=== PATIENT | female | born 1940 | race Caucasian/White ===

== ENCOUNTER 2022-04-19 12:43 | Emergency (ER) | payer OTHER, MEDICARE, BC, SELFPAY ==
[2022-04-19] VITALS (8 sets, daily range): BP systolic 108–130; BP diastolic 55–83; PULSE 58–71; RESP 12–23; TEMP 36.5–36.6; O2SAT 98–100
--- NOTE | ~2022-04-19 | CT_ITS ---
EXAMINATION: CT brain wo con DATE: 04/19/2022 12:55 INDICATION: CVA. TECHNIQUE: Computed tomography (CT) of the head was performed without intravenous contrast. The dose- length product was 605.33 mGy-cm. Automated exposure control and iterative reconstruction technique w ere employed. COMPARISON: None FINDINGS: There is an isodense extra-axial soft tissue collection left frontal parietal region with h igh density fluid extending into the sylvian fissure, suspicious for acute subarachnoid hemorrhage urban perimposed on chronic subdural hematoma. There is also high density material medial to the isodense e xtra-axial collection. There is midline shift to the right measuring 2 mm. There are scattered modera te-severity there is a left qktnnio-hijvyuhd-rmoekdkb craniotomy defect. periventricular and subcorti mat white matter changes, most likely related to small vessel ischemic disease (microangiopathy). Bas ilar cisterns are patent. There is an old left temporal lobe infarction with encephalomalacia. IMPRESSION: 1. Crescentic isodense soft tissue in the extra-axial location of the left frontal-parietal location with medial hyperdense margin. Hyperdense material extends into the left sylvian fissure. This may re present acute superimposed on chronic subdural hematoma with possible subarachnoid hemorrhage. No génesis or examinations are available for comparison. There is midline shift to the right measuring 2 mm. Ove rlying craniotomy defect noted. 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 Dr. Te Costello discussed with Dr. Ralph Nieves at 04/19/2022 13:03 GRANT WRITER. Reviewed, dictated and finalized at location A. T WRITER IMPRESSION: 1. Crescentic isodense soft tissue in the extra-axial location of the left fron miguel ángel-parietal location with medial hyperdense margin. Hyperdense material extend s into the left sylvian fissure. This may represent acute superimposed on chron ic subdural hematoma with possible subarachnoid hemorrhage. No prior examinatio ns are available for comparison. There is midline shift to the right measuring 2 mm. Overlying craniotomy defect noted. 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 Dr. Te Costello discussed with Dr. Ralph Nieves at 04/19/2022 13:03 GRANT WRITER.
--- NOTE | ~2022-04-19 | XR_ITS ---
XR chest 1V portable 04/19/2022 13:09 Indication: CVA. Procedure: AP portable chest Comparison: No prior studies for comparison. Findings: Heart size normal. There is a coronary artery stent. No focal air space disease, pulmonary edema, pleural effusion or suspected pneumothorax. Lung apices excluded. Impression: 1: No acute cardiopulmonary disease. Reviewed, dictated and finalized at location A. AL LABORATORY HELPER Impression: 1: No acute cardiopulmonary disease.
--- NOTE | 2022-04-19 12:47 | ECG_ITS ---
Measurements Intervals [place] Rate: 69 P: 55 WV: 156 QRS: 20 QRSD: 102 T: 179 QT: 448 QTc: 481 Interpretive Statements SINUS RHYTHM WITH OCCASIONAL SUPRAVENTRICULAR PREMATURE COMPLEXES WANDERING BASELINE ARTIFACT ST DEVIATION AND MODERATE T-WAVE ABNORMALITY, CONSIDER ANTEROLATERAL ISCHEMIA ST DEVIATION AND MODERATE T-WAVE ABNORMALITY, CONSIDER INFERIOR ISCHEMIA ABNORMAL ECG NO PREVIOUS ECG AVAILABLE FOR COMPARISON Electronically Signed On 04-19-2022 13:39:10 ORDNANCE ENGINEERING TECHNICIAN by Aaron Parks M.D.
--- NOTE | 2022-04-19 13:08 | ED.NEUROSD ---
HPI - Neuro Symptoms/Deficit General Chief Complaint: Neuro Symptoms/Deficit Stated Complaint: acute onset AMS Time Seen by Provider: 04/19/22 12:59 Source: EMS and RN notes reviewed Mode of arrival: EMS Limitations: physical limitation and clinical condition History of Present Illness HPI Narrative: 82 years old white female came to the emergency room by ambulance because of less responsive, does not follow commands and gurgling and mumbling her words. Patient last seen at her normal baseline at 9 AM, she was placed on a chair, at 12 noon the nurse went to take her to dinner and patient was less responsive, not following verbal commands, unable to move or get out of the chair. Ambulance arrived 19 minutes later and the patient have the same symptoms. Patient baseline is awake, alert, expressive aphasia and able to follow commands. On arrival to the emergency room patient is aphasic and able to follow commands Related Data Allergies Allergy/AdvReac Type Severity Reaction Status Date / Time erythromycin base Allergy Unknown Verified 04/14/22 08:09 Penicillins Allergy Unknown Verified 04/14/22 08:09 Sulfa (Sulfonamide Allergy Unknown Verified 04/14/22 08:08 Antibiotics) sulfanilamide Allergy Unknown Verified 04/14/22 08:08 Review of Systems Review of Systems: ROS unobtainable: Yes unobtainable due to mental status PMFSH Family History Family History Other Unknown family medical history Social History Social History Smoking status: Former smoker Additional smoking assessment comments: Patient family states she quit in her 20s Substance use: never Gender identity (if verbalized by the patient): Female Exam Narrative: General appearance: Well-developed, well-nourished Skin: Normal color Head: Normocephalic, nontraumatic Eyes: Clear conjunctiva ENT: Oropharynx normal, ears normal, nose normal Neck: Supple, nontender Chest and respiratory: Airway patent, no respiratory distress, no accessory muscle use Heart: Regular rate/rhythm Abdomen: Soft, nontender, no organomegaly, quiet bowel sounds Vascular: Normal peripheral pulses, normal capillary refill. Musculoskeletal: Normal range of motion, nontender back Neurologic: Alert, a phasic, follow commands, cannot answer questions. Move upper and lower extremities without any restriction or delay. Course Course Emergency Course: On arrival to the ED patient is back to her baseline. Which could be secondary to urinary tract infection, TIA, was half sleep at that time when the nurse approached her to take her to dinner.. CT scan of the brain today showed improvement compared to the CT scan of the brain prior to discharge from [facility] 2 weeks ago. Currently patient is hemodynamically stable, does not look in pain or distress, no focal neurodeficit except her expressive aphasia which is chronic. Patient is allergic to penicillin, Levaquin IV given. Patient will be discharged on Levaquin. Consultations Consultation #1: Dr. Balderas Neurosurgeon at [facility], he is telling me that CT scan of the head today looks much better than the last CAT scan patient had in his facility prior to discharge 2 to 3 weeks ago. Also he confirmed that urinary tract infection is high likely the underlying cause of patient weakness. Patient can go back to rehab. No need for any neurologic examination at this time Date: 04/19/22 Time: 14:37 MDM - Neuro Symptoms/Deficit Lab Data 04/19/22 12:59 04/19/22 12:59 Labs: Lab Results 04/19/22 04/19/22 04/19/22 Range/Un
[2022-04-19 13:10] LABS: Basophils Absolute Auto 0.1 K/mm3 (0.0-0.1); Basophils Percent Auto 0.5 % (0.2-1.2); Eosinophils Absolute Auto 0.4 K/mm3 (0-0.3); Eosinophils Percent Auto 4.4 % (0-4.4); Hematocrit 36.4 % (37.0-47.0); Hemoglobin 11.6 g/dL (12.0-15.0); Immature Granulocyte Absolute 0.05 K/mm3 (0.00-0.031); Immature Granulocyte Percent A 0.5 % (0-0.5); Lymphocytes Absolute Auto 1.13 K/mm3 (0.9-3.2); Lymphocytes Percent Auto 12.3 % (18.3-44.2); Mean Corpuscular HGB Conc 31.9 g/dl (32-36); Monocytes Percent Auto 10.9 % (2.6-8.5); Neutrophils Absolute Auto 6.5 K/mm3 (1.3-6.7); Neutrophils Percent Auto 71.4 % (45.5-73.1); Platelet Count Result 374 k/mm3 (150-375); Red Cell Distribution Width 13.2 % (11.5-14.5); White Blood Count 9.2 K/mm3 (4.5-10.0)
[2022-04-19 13:19] LABS: Alanine Aminotransferase 35 U/L (6-35); Albumin Level 3.9 g/dL (3.5-5.1); Alkaline Phosphatase 104 U/L (38-126); Anion Gap 7 mmol/L (8-16); Aspartate Amino Transferase 39 U/L (14-36); Bilirubin,Total 0.5 mg/dL (0.2-1.3); Blood Urea Nitrogen 26 mg/dL (7-17); Calcium 8.5 mg/dL (8.4-10.2); Carbon Dioxide 28 mmol/L (22-30); Chloride 99 mmol/L (98-107); Estimated CRCL calculation 39 ml/min; Estimated Glomerular Filt Rate 60; Glucose 103 mg/dL (65-110); Potassium 4.6 mmol/L (3.4-5.0); Sodium 134 mmol/L (137-145)
[2022-04-19 13:20] LABS: Prothrombin Time 12.5 Seconds (11.1-14.7)
[2022-04-19 13:21] LABS: Appearance Urine Slightly Cloudy (Clear); Bilirubin Urine Negative (Negative); Blood Urine 1+ (Negative); Color Urine Yellow (Yellow); Glucose Urine UA Negative (Negative); Ketones Urine Negative (Negative); Leukocyte Esterase Ur 2+ LEU/UL (Negative); Nitrate Urine Negative (Negative); Protein Urine 1+ mg/dL (Negative); Specific Grav Ur 1.025 (1.001-1.035); Urobilinogen Urine 0.2 mg/dL (<2.0)
[2022-04-19 13:21] LABS: Partial Thromboplastin Time 29.6 SECONDS (22.3-36.8)
[2022-04-19 13:24] LABS: Add Urine Microscopic? YES; Bacteria Urine Trace /hpf; Mucus Urine Rare /lpf; Squamous Epithelial Cell Urine Rare /hpf (Few); WBC Clumps Urine Present /HPF; WBC Urine >75 /hpf
[2022-04-19 13:31] LABS: Troponin I < 0.012 ng/mL (0.000-0.034)
== END 2022-04-19 16:35 ==
PROVIDERS: Emergency Medicine; Emergency Provider Emergency Medicine; PCP Internal Medicine
DX: N39.0 Urinary tract infection, site not specified (principal); R53.1 Weakness; Z87.891 Personal history of nicotine dependence; I49.1 Atrial premature depolarization; R94.31 Abnormal electrocardiogram [ECG] [EKG]
CPT/HCPCS: 36415; 70450; 71045; 80053; 81001; 84484; 85025; 85610; 85730; 87077; 87086; 87186; 93005; 96365; 99284; J1956

== ENCOUNTER 2022-05-18 10:02 | Observation (INO) | payer MEDICARE, BC, SELFPAY ==
[2022-05-18] VITALS (26 sets, daily range): BP systolic 92–140; BP diastolic 49–95; PULSE 57–79; RESP 12–18; TEMP 36.4–36.7; O2SAT 97–100; BMI 24.5
--- NOTE | ~2022-05-18 | XR_ITS ---
EXAMINATION: XR chest 2V DATE: 05/18/2022 10:50 INDICATION: Chest pain. Cough. TECHNIQUE: Frontal and lateral views of the chest were obtained. COMPARISON: Chest single view 04/19/2022 FINDINGS: There is mild atelectasis at the lung bases. No pleural effusion or pneumothorax. The heart size is normal. Surgical clips in the right upper quadrant are likely from cholecystectomy. IMPRESSION: 1. Mild atelectasis at the lung bases. Reviewed, dictated and finalized at location A. ULTURE TEACHER
--- NOTE | 2022-05-18 10:07 | ECG_ITS ---
Measurements Intervals [place] Rate: 72 P: 33 IL: 190 QRS: -43 QRSD: 92 T: 64 QT: 378 QTc: 415 Interpretive Statements SINUS RHYTHM WITH SINUS ARRHYTHMIA LOW QRS VOLTAGE IN PRECORDIAL LEADS BORDERLINE R WAVE PROGRESSION, ANTERIOR LEADS INFERIOR INFARCT, AGE INDETERMINATE BORDERLINE ST-T WAVE ABNORMALITY- HIGH LATERAL LEADS BASELINE ARTIFACT- I, II, AVR ABNORMAL ECG COMPARED TO ECG 04/19/2022 13:06:27 SINUS ARRHYTHMIA NOW PRESENT MYOCARDIAL INFARCT FINDING NOW PRESENT Electronically Signed On 05-18-2022 11:24:11 BEHAVIORAL SERVICES TECH by Dragan Walden D.O.
[2022-05-18 11:17] LABS: Basophils Percent Auto 0.6 % (0.2-1.2); Eosinophils Absolute Auto 0.2 K/mm3 (0-0.3); Eosinophils Percent Auto 3.4 % (0-4.4); Hematocrit 39.3 % (37.0-47.0); Hemoglobin 12.5 g/dL (12.0-15.0); Immature Granulocyte Absolute 0.02 K/mm3 (0.00-0.031); Immature Granulocyte Percent A 0.4 % (0-0.5); Lymphocytes Absolute Auto 0.97 K/mm3 (0.9-3.2); Lymphocytes Percent Auto 20.7 % (18.3-44.2); Mean Corpuscular HGB Conc 31.8 g/dl (32-36); Mean Corpuscular Hemoglobin 28.2 pg (26-34); Mean Corpuscular Volume 88.7 fl (80-100); Mean Platelet Volume 9.2 fl (7.4-10.4); Monocytes Absolute Auto 0.5 K/mm3 (0.1-0.6); Monocytes Percent Auto 9.8 % (2.6-8.5); Neutrophils Percent Auto 65.1 % (45.5-73.1); Platelet Count Result 210 k/mm3 (150-375); Red Blood Count 4.43 M/mm3 (4.2-5.4); Red Cell Distribution Width 13.2 % (11.5-14.5); White Blood Count 4.7 K/mm3 (4.5-10.0)
[2022-05-18 11:27] LABS: Alanine Aminotransferase 20 U/L (6-35); Albumin Level 3.9 g/dL (3.5-5.1); Alkaline Phosphatase 88 U/L (38-126); Anion Gap 6 mmol/L (8-16); Aspartate Amino Transferase 31 U/L (14-36); Blood Urea Nitrogen 12 mg/dL (7-17); Calcium 8.4 mg/dL (8.4-10.2); Carbon Dioxide 28 mmol/L (22-30); Chloride 104 mmol/L (98-107); Estimated Glomerular Filt Rate 53; Glucose 93 mg/dL (65-110); Lipase 276 U/L (23-300); Sodium 138 mmol/L (137-145)
[2022-05-18 11:36] LABS: Prothrombin Time 12.9 Seconds (11.1-14.7)
[2022-05-18 11:37] LABS: Partial Thromboplastin Time 28.7 SECONDS (22.3-36.8)
[2022-05-18 11:39] LABS: Troponin I < 0.012 ng/mL (0.000-0.034)
--- NOTE | 2022-05-18 11:47 | ED.CHESTPAIN ---
HPI - Chest Pain General Chief Complaint: Chest Pain <CHAO Del Cid Last Filed: 05/18/22 13:27> Stated Complaint: Chest pain since 9 am <CHAO Del Cid Last Filed: 05/18/22 13:27> Time Seen by Provider: 05/18/22 10:42 <CHAO Del Cid Last Filed: 05/18/22 13:27> Source: patient, family, EMS and RN notes reviewed <CHAO Del Cid Last Filed: 05/18/22 13:27> Mode of arrival: EMS <CHAO Del Cid Last Filed: 05/18/22 13:27> Limitations: other (patient with history of CVA with residual aphasia) <CHAO Del Cid Last Filed: 05/18/22 13:27> History of Present Illness HPI narrative: This is a 82-year-old female that presents to the emergency department with chief complaint of chest pain. Reportedly was complaining of chest pain at her nursing facility. Patient with history of recent CVA with residual aphasia. It is hard to obtain any meaningful history from her. She reports currently she does not have any chest pain or other complaints. Was given nitroglycerin and aspirin in route via EMS. She does have known history of coronary artery disease. Her tariff compiling clerk is Dr. Roberts. Denies fever, cough, difficulty breathing, abdominal pain, vomiting. <CHAO Del Cid Last Filed: 05/18/22 13:27> Related Data Allergies/Adverse Reactions: Allergies Allergy/AdvReac Type Severity Reaction Status Date / Time erythromycin base Allergy Unknown Verified 04/14/22 08:09 Penicillins Allergy Unknown Verified 04/14/22 08:09 Sulfa (Sulfonamide Allergy Unknown Verified 04/14/22 08:08 Antibiotics) sulfanilamide Allergy Unknown Verified 04/14/22 08:08 <CHAO Del Cid Last Filed: 05/18/22 13:27> Review of Systems Review of Systems: ROS unobtainable: Yes unobtainable due to medical condition <CHAO Del Cid Last Filed: 05/18/22 13:27> PMFSH Past Medical History Medical History: Medical History (Updated 05/18/22 @ 13:18 by Kelly Bran PA-C) Atrial fibrillation CVA (cerebral vascular accident) Essential (primary) hypertension GERD (gastroesophageal reflux disease) History of coronary artery disease <Kelly Bran PA-C - Last Filed: 05/18/22 13:27> Family History Family History: Family History Other Unknown family medical history <Kelly Bran PA-C - Last Filed: 05/18/22 13:27> Social History Social History: Social History Smoking status: Former smoker Additional smoking assessment comments: Patient family states she quit in her 20s Substance use: never Gender identity (if verbalized by the patient): Female <Kelly Bran PA-C - Last Filed: 05/18/22 13:27> Exam Narrative: GENERAL: Elderly, well-nourished, and in no acute distress. HEAD: Normocephalic, atraumatic. EYES: EOMI. ENT: Nares clear, no rhinorrhea or epistaxis. Mucous membranes moist. Oropharynx without tonsillar hypertrophy exudate or other lesions. NECK: Supple. No adenopathy or masses. CHEST: Clear to auscultation. No respiratory distress. No wheezes rales or rhonchi HEART: Regular rate and rhythm. No murmur heard. Normal peripheral pulses. ABDOMEN: Soft, nontender, nondistended, normal active bowel sounds. EXTREMITIES: Normal range of motion. No edema. SKIN: Warm, dry, no rash. NEURO: No focal deficits. Alert and oriented x2. PSYCH: Normal mood and affect <Kelly Bran PA-C - Last Filed: 05/18/22 13:27> Course Course Emergency Course: Patient and family updated on work-up and need for admission <Kelly Bran PA-C - Last Filed: 05/18/22 13:27> UPHOLSTERER OUTSIDE/PA Physician Supervision For this patient encounter, I reviewed the UPHOLSTERER OUTSIDE or PA documentation, treatment plan, and medical decision making; and I had [id number] time with this patient. Patient and family were updated on the results of the
[2022-05-18 13:32] LABS: Troponin I < 0.012 ng/mL (0.000-0.034)
[2022-05-18 13:47] LABS: Influenza A QL RT-PCR Negative (Negative); Influenza B QL RT-PCR Negative (Negative); SARS-CoV-2 RNA PCR Positive
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
--- NOTE | 2022-05-18 15:30 | PM.CNCAR ---
Assessment and Plan Assessment and plan (1) Chest pain: Qualifiers: Chest pain type: unspecified Qualified Code(s): R07.9 - Chest pain, unspecified Code(s): R07.9 - Chest pain, unspecified Status: Acute Assessment and Plan: Reproducible by palpation of chest wall so could be musculoskeletal. Thus far EKG and troponin are unremarkable. Due to testing positive for covid would defer stress testing in next couple of weeks. Obtain echo. (2) CAD (coronary artery disease): Code(s): I25.10 - Atherosclerotic heart disease of [place] coronary artery without angina pectoris Status: Acute Assessment and Plan: Her regular toxicologist is Dr. Roberts. Start Aspirin 81 mg daily. (3) Hypertension: Code(s): I10 - Essential (primary) hypertension Status: Acute Assessment and Plan: Stable. (4) Dyslipidemia: Code(s): E78.5 - Hyperlipidemia, unspecified Status: Acute Assessment and Plan: On Atorvastatin. (5) COVID-19: Code(s): U07.1 - COVID-19 Status: Acute Assessment and Plan: Management as per hospitalist. History of Present Illness History of Present Illness Consult date/time: 05/18/22 15:30 Reason For Visit: Chest Pain Narrative: 82 yr old woman presented from longterm to ER via ambulance for chest pain. She has a history of CAD with stent, hypertension, dyslipidemia, stroke with residual expressive aphasia. Her regular toxicologist is Dr. Roberts. Unable to obtain appreciable history from patient due to aphasia. She is alert and pleasant. Apparently she had chest pain earlier today that resolved. She is able to walk at longterm without any problems. She tested positive for covid by PCR. Review of Systems Constitutional: Constitutional: Reports as per HPI, Denies chills and Denies fever(s) Cardiovascular: Cardiovascular: Reports as per HPI, Reports chest pain, Denies irregular heart rhythm, Denies leg edema and Denies lightheadedness Respiratory: Respiratory: Reports as per HPI and Denies dyspnea Gastrointestinal: Gastrointestinal: Reports as per HPI and Denies abdominal pain Genitourinary: Genitourinary: Reports as per HPI and Denies dysuria Musculoskeletal: Musculoskeletal: Reports as per HPI Neurologic: Reports as per HPI, Denies dizziness and Denies syncope [facility] Past Medical History Medical History (Updated 05/18/22 @ 15:35 by Dragan Walden DO) Atrial fibrillation CVA (cerebral vascular accident) Essential (primary) hypertension GERD (gastroesophageal reflux disease) History of coronary artery disease Family History Family History Other Unknown family medical history Social History Social History Smoking status: Former smoker Additional smoking assessment comments: Patient family states she quit in her 20s Substance use: never Gender identity (if verbalized by the patient): Female Meds Home Medications and Allergies Home Medications Medication Instructions Recorded Confirmed Type L.acidophilus-L.bulgar-B.bifid-S.thermoph 1 tab PO BID #60 tabs 04/25/22 Rx 1 billion cell-250 mg tablet (Mallika-Bid) atorvastatin 10 mg tablet 10 mg PO QHS #30 tabs 04/25/22 Rx bisacodyl 5 mg tablet,delayed 5 mg PO QAM PRN Constipation #30 04/25/22 Rx release (Laxative (bisacodyl)) tabs bumetanide 1 mg tablet 1 mg PO DAILY PRN FLUID RETENTION 04/25/22 Rx #30 tabs docusate sodium 100 mg capsule 100 mg PO Q12H PRN Constipation 04/25/22 Rx #60 caps famotidine 20 mg tablet 20 mg PO Q12HR #60 tabs 04/25/22 Rx ferrous sulfate 300 mg (60 mg 300 mg (5 mL) PO DAILY@2100 #30 mL 04/25/22 Rx iron)/5 mL oral liquid heparin (porcine) 5,000 unit/mL 5,000 units subcut Q12HR #30 mL 04/25/22 Rx injection solution levetiracetam 500 mg tablet 500 mg PO Q12HR #60 tabs 04/25/22 Rx (
[2022-05-18 16:43] LABS: Troponin I < 0.012 ng/mL (0.000-0.034)
--- NOTE | 2022-05-18 16:58 | PC.NURSE ---
heart healthy diet food tray ordered
--- NOTE | 2022-05-18 18:48 | ADMGEN ---
This patient, Bella Morrison, was admitted to IMU Room 231-01. 18:43 Patient/family oriented to hospital policies and general routines including ID bracelet, bed and alarms, visiting hours, pain management, procedures, bathroom and other care routines, personal items, smoking policy, room service/diet, and visiting hours. Room air, no distress noted. Information on how to activate the Rapid Response Team has been discussed. Patient/Family are encouraged to report perceived risks to care and to ask questions if they do not understand what they are told or what they should do.
[2022-05-19] VITALS (13 sets, daily range): BP systolic 114–148; BP diastolic 55–90; PULSE 50–82; RESP 16–20; TEMP 36.4–36.6; O2SAT 93–100
--- NOTE | 2022-05-19 | ECHO_ITS ---
Patient Info Name: Bella Morrison Age: 82 years : 1940 Gender: Female Ht: 65 in Wt: 143 lbs BSA: 1.73 m2 HR: 63 bpm BP: 148 / 69 mmHg Technical Quality: Fair Exam Date: 05/19/2022 11:01 AM Exam Location: [facility] Pulmonary Patient Status: Inpatient Admit Date: 05/18/2022 Staff Ordering Physician: Dragan Walden DO [employer]: Demetris Givens RDCS, RT Attending Provider: Anton Leonard MD Referring Physician: Win SULLIVAN; Exam Type: CA echo doppler color flow Study Info Indications R07.9 - Chest pain, unspecified Complete two-dimensional, color flow and Doppler transthoracic echocardiogram is performed. Strain analysis performed. Summary 1. Complete two-dimensional, color flow and Doppler transthoracic echocardiogram is performed. 2. Left ventricular chamber dimension is normal. 3. Left ventricular systolic function is normal, estimated at 60-65%. 4. Left ventricular septal wall motion is abnormal with septal motion related to bundle branch block. 5. The left ventricular diastolic function is grade I diastolic dysfunction. 6. E/e' 6 is not elevated. 7. Global longitudinal strain is normal at -18.2%. 8. Right ventricular systolic function is reduced based on an abnormal TAPSE 1.6 cm. 9. There is mild aortic valve sclerosis. 10. There is trace aortic valve regurgitation. 11. There is trace mitral valve regurgitation. 12. There is trace tricuspid valve regurgitation. 13. No pulmonary hypertension, estimated pulmonary arterial systolic pressure is 26 mmHg. Left Ventricle E/e' 6 is not elevated. Global longitudinal strain is normal at -18.2%. Left ventricular chamber dimension is normal. Left ventricular systolic function is normal, estimated at 60-65%. Left ventricular septal wall motion is abnormal with septal motion related to bundle branch block. The left ventricular diastolic function is grade I diastolic dysfunction. Right Ventricle Right ventricular systolic function is reduced based on an abnormal TAPSE 1.6 cm. Right ventricular chamber dimension is not well visualized. Left Atria Left atrial chamber dimension is normal. Right Atria Right atrial chamber dimension is normal. Aortic Valve The aortic valve is probable trileaflet. There is mild aortic valve sclerosis. There is no aortic valve stenosis. There is trace aortic valve regurgitation. Pulmonic Valve There is no pulmonic regurgitation. Mitral Valve There is no mitral valve stenosis. There is trace mitral valve regurgitation. Tricuspid Valve There is trace tricuspid valve regurgitation. No pulmonary hypertension, estimated pulmonary arterial systolic pressure is 26 mmHg. Pericardium/Pleural There is no pericardial effusion. Inferior Vena Cava Normal inferior vena cava with >50% collapse upon inspiration consistent with normal right atrial pressure, 5 mmHg. Aorta The aortic root size at the sinus of Valsalva is normal. Left Ventricular Outflow Tract Name Value Normal LVOT 2D LVOT Diameter 2.0 cm LVOT Doppler LVOT Peak Gradient 4 mmHg LVOT Mean Gradient
[2022-05-19 07:16] LABS: Anion Gap 8 mmol/L (8-16); Blood Urea Nitrogen 14 mg/dL (7-17); Carbon Dioxide 25 mmol/L (22-30); Chloride 106 mmol/L (98-107); Estimated CRCL calculation 39 ml/min; Estimated Glomerular Filt Rate 60; Glucose 95 mg/dL (65-110); Sodium 139 mmol/L (137-145)
--- NOTE | 2022-05-19 07:58 | PM.PNCARD ---
Progress Note: A&P Assessment and Plan (1) Chest pain: Qualifiers: Chest pain type: unspecified Qualified Code(s): R07.9 - Chest pain, unspecified Code(s): R07.9 - Chest pain, unspecified Status: Acute Assessment and Plan: Reproducible by palpation of chest wall so could be musculoskeletal. Thus far EKG and troponin are unremarkable. Due to testing positive for covid would defer stress testing in next couple of weeks. Obtain echo. If echo is unremarkable, no further cardiac workup is needed. (2) CAD (coronary artery disease): Code(s): I25.10 - Atherosclerotic heart disease of [place] coronary artery without angina pectoris Status: Acute Assessment and Plan: Her regular academic registrar is Dr. Roberts. Started Aspirin 81 mg daily. (3) Hypertension: Code(s): I10 - Essential (primary) hypertension Status: Acute Assessment and Plan: Stable. (4) Dyslipidemia: Code(s): E78.5 - Hyperlipidemia, unspecified Status: Acute Assessment and Plan: On Atorvastatin. (5) COVID-19: Code(s): U07.1 - COVID-19 Status: Acute Assessment and Plan: Management as per hospitalist. Subjective Date/time seen: 05/19/22 07:58 Interval history: No more chest pain. No sob. Exam Const: General: cooperative, healthy appearing and comfortable Orientation/consciousness: oriented to person, oriented to place and oriented to time Resp: Auscultation: clear to auscultation bilaterally, no crackles, no rales, no rhonchi and no wheezes Cardio: Rate: regular rate Rhythm: regular rhythm Heart sounds: no murmurs Peripheral pulses: dorsalis pedis present Neuro: General: oriented to person, oriented to place and oriented to time Extrem: Right lower extremity: no edema Left lower extremity: no edema Objective Data Vital Signs Vital Signs: Vital Signs - 24 hr 05/18/22 10:03 05/18/22 10:18 05/18/22 10:31 Temperature 98.1 F Pulse Rate 70 74 79 Respiratory Rate 18 12 12 Blood Pressure 100/61 100/61 94/58 L Pulse Oximetry 98 99 98 Oxygen Delivery Room Air 05/18/22 11:01 05/18/22 11:16 05/18/22 11:31 Temperature Pulse Rate 72 71 71 Respiratory Rate 15 14 13 Blood Pressure 108/58 L 98/57 L 107/59 L Pulse Oximetry 98 98 98 Oxygen Delivery 05/18/22 11:46 05/18/22 12:31 05/18/22 13:01 Temperature Pulse Rate 66 57 L 60 Respiratory Rate 13 12 13 Blood Pressure 107/57 L 118/95 H 132/60 Pulse Oximetry 98 Oxygen Delivery 05/18/22 13:31 05/18/22 13:46 05/18/22 14:01 Temperature Pulse Rate 62 64 69 Respiratory Rate 18 16 13 Blood Pressure 92/55 L 94/59 L 109/57 L Pulse Oximetry 99 97 Oxygen Delivery 05/18/22 14:16 05/18/22 14:30 05/18/22 14:31 Temperature Pulse Rate 68 70 73 Respiratory Rate 16 16 13 Blood Pressure 128/54 L 101/64 Pulse Oximetry Oxygen Delivery 05/18/22 15:08 05/18/22 15:15 05/18/22 15:16 Temperature Pulse Rate 61 65 64 Respiratory Rate 15 16 16 Blood Pressure 119/61 Pulse Oximetry 98 98 98 Oxygen Delivery 05/18/22 15:30 05/18/22 15:31 05/18/22 16:16 Temperature Pulse Rate 65 65 71 Respiratory Rate 16 14 14 Blood Pressure 138/57 L 102/51 L Pulse Oximetry 97 98 Oxygen Delivery 05/18/22 17:31 05/18/22 19:11 05/18/22 20:00 Temperature 97.7 F Pulse Rate 63 74 70 Respiratory Rate 13 18 Blood Pressure 140/50 L 127/49 L Pulse Oximetry 97 100 Oxygen Delivery 05/18/22 21:47 05/18/22 23:45 05/19/22 00:00 Temperature 97.6 F Pulse Rate 72 62 68 Respiratory Rate 18 Blood Pressure 129/52 L Pulse Oximetry 98 Oxygen Delivery 05/19/22 00:00 05/19/22 02:00 05/19/22 04:00 Temperature 97.6 F Pulse Rate 68 79 82 Respiratory Rate 18 20 Blood Pressure 148/69 H Pulse Oximetry 98 99 Oxygen Delivery Room Air 05/19/22 04:00 05/19/22 04:00 05/19/22 05:18 Temperature Pulse Rate 64 76 72 Respiratory Ra
[2022-05-19] MEDS: ASPIRIN 81 MG ENTERIC TABLET PO (08:30)
[2022-05-19] MEDS: levETIRAcetam 500 MG TABLET PO ×2 (08:30→16:23)
[2022-05-19] MEDS: FAMOTIDINE 20 MG TABLET PO ×2 (08:30→16:23)
[2022-05-19] MEDS: FERROUS SULFATE 324 MG TABLET PO (08:30)
[2022-05-19] MEDS: METOPROLOL TARTRATE 6.25 MG TABLET PO ×2 (08:30→20:34)
[2022-05-19] MEDS: SACCHAROMYCES BOULARDII 250 MG CAPSULE PO ×2 (08:31→16:23)
[2022-05-19] MEDS: ACETAMINOPHEN 325 MG TABLET 650 MG PO (08:43)
--- NOTE | 2022-05-19 16:29 | PM.IMPN ---
Progress Note: A&P Assessment and Plan (1) Chest pain: Qualifiers: Chest pain type: unspecified Qualified Code(s): R07.9 - Chest pain, unspecified Code(s): R07.9 - Chest pain, unspecified Status: Acute Assessment and Plan: Patient has apparently been complaining of chest pain off and on for quite some time. Localized reproducible chest pain suspected to be musculoskeletal in origin. EKG shows Q-waves in the inferior leaves and ST segment changes in the high lateral leads which are new compared to tracings done just 1 month ago. Cardiology has been consulted echocardiogram is pending (2) Lab test positive for detection of COVID-19 virus: Code(s): U07.1 - COVID-19 Status: Acute Assessment and Plan: Reportedly tested positive 2 weeks ago; has been out of quarantine for 5 days. No longer asymptomatic. No need for isolation. (3) Paroxysmal atrial fibrillation: Code(s): I48.0 - Paroxysmal atrial fibrillation Status: Acute Assessment and Plan: Currently in a sinus rhythm. Continue metoprolol 6.25 milligrams b.i.d.. Not on anticoagulation, likely due to recent intracranial hemorrhage. (4) Hypertension: Code(s): I10 - Essential (primary) hypertension Status: Acute Assessment and Plan: Blood pressures were reviewed and they have been stable aside from a few readings on the low end of normal. Antihypertensives will be reviewed and resumed as appropriate. (5) Dyslipidemia: Code(s): E78.5 - Hyperlipidemia, unspecified Status: Acute Assessment and Plan: Continue statin; LFTs within normal limits. Plan Will order PT OT Subjective Date/time seen: 05/19/22 16:29 Interval history: Feels okay no further chest pain. Denies any shortness of breath. History limited due to expressive aphasia. Review of Systems Review of Systems: All systems reviewed & are unremarkable except as noted in HPI and below Exam Narrative: General: Nontoxic-appearing female laying in bed in no acute distress expressive aphasia at baseline. HEENT: Prior left craniotomy with a few eschars. PERRL, EOMI. Sclera anicteric. Oral mucosa moist. Neck: Supple. No obvious bruits. Respiratory: Lungs are clear to auscultation bilaterally. Cardiovascular: Regular rate and rhythm with S1-S2. Chest wall is nontender Gastrointestinal: Abdomen is soft, nontender, and nondistended with positive bowel sounds. Skin: Warm and dry. No rash or lesions on limited exam. Extremities: No cyanosis, clubbing, or edema. Radial and pedal pulses intact. Neurological: Alert. Cranial nerves 2-12 are grossly intact. Speech is clear but with expressive aphasia. No facial asymmetry. Hand tip scourer and foot pushes equal bilaterally. Strength intact in upper and lower extremities. Psychiatric: Pleasant and cooperative. Frequent crying episodes. Objective Data Vital Signs Vital Signs: Vital Signs - 24 hr 05/18/22 17:31 05/18/22 19:11 05/18/22 20:00 Temperature 97.7 F Pulse Rate 63 74 70 Respiratory Rate 13 18 Blood Pressure 140/50 L 127/49 L Pulse Oximetry 97 100 Oxygen Delivery 05/18/22 21:47 05/18/22 23:45 05/19/22 00:00 Temperature 97.6 F Pulse Rate 72 62 68 Respiratory Rate 18 Blood Pressure 129/52 L Pulse Oximetry 98 Oxygen Delivery 05/19/22 00:00 05/19/22 02:00 05/19/22 04:00 Temperature 97.6 F Pulse Rate 68 79 82 Respiratory Rate 18 20 Blood Pressure 148/69 H Pulse Oximetry 98 99 Oxygen Delivery Room Air 05/19/22 04:00 05/19/22 04:00 05/19/22 05:18 Temperature Pulse Rate 64 76 72 Respiratory Rate 18 Blood Pressure Pulse Oximetry 98 Oxygen Delivery Room Air 05/19/22 08:00 05/19/22 08:00 05/19/22 10:00 Temperature 97.6 F Pulse Rate 77 82 64 Respiratory Rate 16 Blood Pressure 141/77 H Pulse Oximetry 93 Oxygen Delivery 05/19/22 12:00 05/19/22 14:00 Temperature Pul
[2022-05-19] MEDS: traZODone HCL 50 MG TABLET PO (20:34)
[2022-05-19] MEDS: ATORVASTATIN 10 MG TABLET PO (20:34)
--- NOTE | 2022-05-19 21:46 | PC.NURSE ---
This patient, Bella Morrison, was transferred to [[id number] ] on 05/19/22 at 2146. Personal belongings sent with patient. Report given to [Tiarra palm ]. Appropriate documentation sent with patient.
--- NOTE | 2022-05-19 21:54 | PC.NURSE ---
recieved from IMU per bed.
[2022-05-20] VITALS: PULSE 52
[2022-05-20 00:30] VITALS: PULSE 52
[2022-05-20 05:08] VITALS: BP 96/54; PULSE 59; RESP 16; TEMP 37.2; O2SAT 97
[2022-05-20 06:37] LABS: Basophils Percent Auto 0.5 % (0.2-1.2); Eosinophils Absolute Auto 0.2 K/mm3 (0-0.3); Eosinophils Percent Auto 4.3 % (0-4.4); Hematocrit 38.5 % (37.0-47.0); Hemoglobin 12.1 g/dL (12.0-15.0); Immature Granulocyte Absolute 0.02 K/mm3 (0.00-0.031); Immature Granulocyte Percent A 0.5 % (0-0.5); Lymphocytes Absolute Auto 1.14 K/mm3 (0.9-3.2); Lymphocytes Percent Auto 27.4 % (18.3-44.2); Mean Corpuscular HGB Conc 31.4 g/dl (32-36); Mean Corpuscular Hemoglobin 27.6 pg (26-34); Mean Corpuscular Volume 87.9 fl (80-100); Mean Platelet Volume 9.8 fl (7.4-10.4); Monocytes Absolute Auto 0.5 K/mm3 (0.1-0.6); Monocytes Percent Auto 12.3 % (2.6-8.5); Neutrophils Absolute Auto 2.3 K/mm3 (1.3-6.7); Platelet Count Result 201 k/mm3 (150-375); Red Blood Count 4.38 M/mm3 (4.2-5.4); Red Cell Distribution Width 13.2 % (11.5-14.5); White Blood Count 4.2 K/mm3 (4.5-10.0)
[2022-05-20 06:55] LABS: Alanine Aminotransferase 18 U/L (6-35); Albumin Level 3.8 g/dL (3.5-5.1); Alkaline Phosphatase 79 U/L (38-126); Anion Gap 5 mmol/L (8-16); Aspartate Amino Transferase 26 U/L (14-36); Bilirubin,Total 0.8 mg/dL (0.2-1.3); Blood Urea Nitrogen 12 mg/dL (7-17); Calcium 8.5 mg/dL (8.4-10.2); Carbon Dioxide 28 mmol/L (22-30); Chloride 106 mmol/L (98-107); Estimated CRCL calculation 39 ml/min; Estimated Glomerular Filt Rate 60; Glucose 83 mg/dL (65-110); Magnesium 1.9 mg/dL (1.6-2.3); Potassium 3.8 mmol/L (3.4-5.0); Sodium 139 mmol/L (137-145)
--- NOTE | 2022-05-20 08:00 | PM.PNCARD ---
Progress Note: A&P Assessment and Plan (1) Chest pain: Qualifiers: Chest pain type: unspecified Qualified Code(s): R07.9 - Chest pain, unspecified Code(s): R07.9 - Chest pain, unspecified Status: Acute Assessment and Plan: Reproducible by palpation of chest wall so could be musculoskeletal. Thus far EKG and troponin are unremarkable. Due to testing positive for covid would defer stress testing in next couple of weeks. Echo is unremarkable. 05/19/22 Echo: EF 60-65%, grade I diastolic dysfunction (E/e' 6), trace AI/MR/TR. No further cardiac workup. Will sign off. Please call with any questions. (2) CAD (coronary artery disease): Code(s): I25.10 - Atherosclerotic heart disease of [place] coronary artery without angina pectoris Status: Acute Assessment and Plan: Her regular research laboratory technician is Dr. Roberts. (3) Hypertension: Code(s): I10 - Essential (primary) hypertension Status: Acute Assessment and Plan: Stable. (4) Dyslipidemia: Code(s): E78.5 - Hyperlipidemia, unspecified Status: Acute Assessment and Plan: On Atorvastatin. (5) COVID-19: Code(s): U07.1 - COVID-19 Status: Acute Assessment and Plan: Management as per hospitalist. Subjective Date/time seen: 05/20/22 08:00 Interval history: Has reproducible chest pain with palpation. No sob. Exam Const: General: cooperative, healthy appearing and comfortable Orientation/consciousness: oriented to person, oriented to place and oriented to time Resp: Auscultation: clear to auscultation bilaterally, no crackles, no rales, no rhonchi and no wheezes Cardio: Rate: regular rate Rhythm: regular rhythm Heart sounds: no murmurs Peripheral pulses: dorsalis pedis present Neuro: General: oriented to person, oriented to place and oriented to time Extrem: Right lower extremity: no edema Left lower extremity: no edema Objective Data Vital Signs Vital Signs: Vital Signs - 24 hr 05/19/22 10:00 05/19/22 12:00 05/19/22 14:00 Temperature Pulse Rate 64 65 66 Respiratory Rate Blood Pressure Pulse Oximetry Oxygen Delivery 05/19/22 16:00 05/19/22 18:00 05/19/22 16:00 Temperature 97.8 F Pulse Rate 67 59 L 65 Respiratory Rate 16 Blood Pressure 138/90 Pulse Oximetry 98 Oxygen Delivery 05/19/22 20:34 05/19/22 20:00 05/19/22 20:00 Temperature 97.8 F Pulse Rate 67 67 67 Respiratory Rate 18 Blood Pressure 114/55 L Pulse Oximetry 100 Oxygen Delivery 05/19/22 20:00 05/19/22 22:00 05/20/22 00:00 Temperature Pulse Rate 67 50 L 52 L Respiratory Rate 18 16 Blood Pressure 130/62 Pulse Oximetry 100 98 Oxygen Delivery Room Air 05/20/22 00:30 05/20/22 05:08 Temperature 98.9 F Pulse Rate 52 L 59 L Respiratory Rate 16 Blood Pressure 96/54 L Pulse Oximetry 97 Oxygen Delivery Intake/Output Intake/Output: Intake & Output 05/17/22 05/18/22 05/19/22 05/20/22 23:59 23:59 23:59 23:59 Intake Total 720 Output Total 800 Balance -80 Meds/Results Medications: Active Medications Generic Name Dose Route Start Last Admin Trade Name Freq PRN Reason Stop Dose Admin Acetaminophen 650 mg 05/18/22 21:23 05/19/22 08:43 Acetaminophen 325 Mg Tablet PO 650 mg Q6H PRN Administration Mild Pain (1-3) or Fever Aspirin 81 mg 05/19/22 09:00 05/19/22 08:30 Aspirin 81 Mg Enteric Tablet PO 81 mg QAM AMNA Administration Atorvastatin Calcium 10 mg 05/19/22 21:00 05/19/22 20:34 Atorvastatin 10 Mg Tablet PO 10 mg QHS AMNA Administration Bisacodyl 5 mg 05/19/22 00:21 Bisacodyl 5 Mg Tablet Ec PO QAM PRN Constipation Docusate Sodium 100 mg 05/19/22 00:21 Docusate Sodium 100 Mg Capsule PO Q12H PRN Constipation Famotidine 20 mg 05/19/22 09:00 05/19/22 16:23 Famotidine 20 Mg Tablet PO 20 mg BID AMNA Administration Ferrous Sulfat
[2022-05-20 08:30] VITALS: PULSE 59
[2022-05-20] MEDS: FERROUS SULFATE 324 MG TABLET PO (08:47)
[2022-05-20] MEDS: levETIRAcetam 500 MG TABLET PO (08:47)
[2022-05-20] MEDS: FAMOTIDINE 20 MG TABLET PO (08:47)
[2022-05-20] MEDS: ASPIRIN 81 MG ENTERIC TABLET PO (08:47)
[2022-05-20] MEDS: SACCHAROMYCES BOULARDII 250 MG CAPSULE PO (08:47)
[2022-05-20] MEDS: LIDOCAINE 5% PATCH 1 PATCH TRANSDERM (08:49)
[2022-05-20 12:00] VITALS: PULSE 55
[2022-05-20 14:00] VITALS: BP 144/54; PULSE 60; RESP 16; TEMP 36.2; O2SAT 100
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
== END 2022-05-20 17:10 ==
LOC: ANHED 13:18 → ANHIMU 21:49 → ANH3MEDSUR 05-20 00:55 → ANHIMU 05-21 10:34
PROVIDERS: General Practice; Internal Medicine; Physician Assistant; Admitting Provider Chiropractor; Emergency Provider Emergency Medicine; PCP Internal Medicine; Visit Provider Family Medicine
DX: R07.9 Chest pain, unspecified (principal); U07.1 COVID-19; I48.0 Paroxysmal atrial fibrillation; I69.320 Aphasia following cerebral infarction; I11.9 Hypertensive heart disease without heart failure; E78.5 Hyperlipidemia, unspecified; I25.10 Atherosclerotic heart disease of native coronary artery without angina pectoris; Z95.5 Presence of coronary angioplasty implant and graft; R94.31 Abnormal electrocardiogram [ECG] [EKG]; K21.9 Gastro-esophageal reflux disease without esophagitis; I35.8 Other nonrheumatic aortic valve disorders; J98.11 Atelectasis; Z87.891 Personal history of nicotine dependence; Z87.820 Personal history of traumatic brain injury; Z79.899 Other long term (current) drug therapy
CPT/HCPCS: 36415; 71046; 80048; 80053; 83690; 83735; 84484; 85025; 85610; 85730; 87636; 93005; 93306; 97161; 97165; 99285; A9270; G0378

== ENCOUNTER 2022-06-19 19:52 | Emergency (ER) | payer MEDICARE, BC, SELFPAY ==
[2022-06-19] VITALS (8 sets, daily range): BP systolic 121–146; BP diastolic 51–67; PULSE 50–76; RESP 11–16; TEMP 36.8; O2SAT 97–100
--- NOTE | ~2022-06-19 | XR_ITS ---
EXAMINATION: XR chest 1V portable DATE: 06/19/2022 20:49 INDICATION: Confusion. TECHNIQUE: A single frontal view of the chest was obtained. COMPARISON: Chest 2 views 05/18/22 FINDINGS: The chest demonstrates clear lungs without pneumonia, pleural effusion, or pneumothorax. Th e heart size is normal. Surgical clips in the right upper quadrant are likely from cholecystectomy. IMPRESSION: 1. No acute cardiopulmonary disease. Reviewed, dictated and finalized at location A. MILL AND LATHE OPERATOR
--- NOTE | ~2022-06-19 | CT_ITS ---
EXAMINATION: CT brain wo con DATE: 06/19/2022 20:53 INDICATION: Mental status change. TECHNIQUE: Computed tomography (CT) of the head was performed without intravenous contrast. The mA wa s adjusted according to patient size. Iterative reconstruction technique was employed. The dose-lengt h product was 605.33 mGy-cm. COMPARISON: Head CT 04/19/2022 FINDINGS: There is chronic encephalomalacia in left temporal lobe. There are scattered areas of low a ttenuation in the cerebral white matter. There are changes of left-sided craniotomy. Again seen is an extra-axial fluid collection deep to the craniotomy with maximum thickness of 4 mm. There is no acut e intracranial hemorrhage, acute infarction, or abnormal intracranial mass lesion. There is ex vacuo dilatation of temporal horn of left lateral ventricle. There are likely changes of ocular lens replac ement surgeries. There is mild mucosal thickening in the paranasal sinuses. The mastoid air cells are normal. IMPRESSION: 1. 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 2. Stable thin fluid collection deep to the left-sided craniotomy. 3. Stable extensive nonspecific cerebral white matter disease, which likely represents chronic small vessel ischemic disease. Reviewed, dictated and finalized at location A. L WASHING MACHINE OPERATOR IMPRESSION: 1. 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 2. Stable thin fluid collection deep to the left-sided craniotomy. 3. Stable extensive nonspecific cerebral white matter disease, which likely rep resents chronic small vessel ischemic disease.
--- NOTE | 2022-06-19 20:37 | ED.AMS ---
HPI - Altered Mental Status General Chief Complaint: Recheck/Abnormal Lab/Rx Stated Complaint: confusion, incontinence Time Seen by Provider: 06/19/22 20:28 History of Present Illness HPI narrative: Pt presents today with increased confusion. Pt had a SAH several months ago and has baseline deficits since but today has been more confused and less responsive than usual. Pt has been having urinary accidents so family assumed she had a UTI and took her to . They did a dip urine which showed protein but no UTI so they sent her to the ER for further evaluation. Related Data Home Medications Medication Instructions Recorded Confirmed Saccharomyces boulardii 250 mg 250 mg PO BID 05/18/22 05/18/22 capsule (Florastor) acetaminophen 650 mg tablet 650 mg PO Q6H PRN Pain (Scale 05/18/22 05/18/22 Score 1-3) famotidine 20 mg tablet 20 mg PO BID 05/18/22 05/18/22 ferrous sulfate 324 mg (65 mg 324 mg PO DAILY 05/18/22 05/18/22 iron) tablet,delayed release levetiracetam 500 mg tablet 500 mg PO BID 05/18/22 05/18/22 (Keppra) metoprolol tartrate 25 mg tablet 6.25 mg PO BID 05/18/22 05/18/22 nitroglycerin 0.4 mg sublingual 0.4 mg sublingual Q5M PRN Chest 05/18/22 05/18/22 tablet Pain trazodone 50 mg tablet 50 mg PO HS 05/18/22 05/18/22 Allergies Allergy/AdvReac Type Severity Reaction Status Date / Time erythromycin base Allergy Unknown Verified 04/14/22 08:09 Penicillins Allergy Unknown Verified 04/14/22 08:09 Sulfa (Sulfonamide Allergy Unknown Verified 04/14/22 08:08 Antibiotics) sulfanilamide Allergy Unknown Verified 04/14/22 08:08 Review of Systems Review of Systems: ROS unobtainable: Yes unobtainable due to mental status [facility] Past Medical History Medical History (Updated 06/19/22 @ 21:47 by Ashley Lorenzo III, DO) Atrial fibrillation Coronary artery disease Dyslipidemia Essential (primary) hypertension GERD (gastroesophageal reflux disease) Intraparenchymal hemorrhage of brain (03/2022) Paroxysmal atrial fibrillation Subdural hematoma (03/2022) Surgical History Surgical History (Updated 05/18/22 @ 21:14 by Belen Taylor PA-C) History of craniotomy (03/2022) Family History Family History Other Unknown family medical history Social History Social History (Updated 05/18/22 @ 21:16 by Belen Taylor PA-C) Social History: [employer] 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 Code status: Full code. Social determinants of health: New deficits (expressive aphasia, memory loss). Smoking status: Former smoker Additional smoking assessment comments: Patient family states she quit in her 20s Alcohol intake: never Substance use: never Substance use type: does not use Additional living arrangements comments: Prior to recent hospitalization the patient was living in her own home in [place]. Additional occupation/education comments: Retired. Spiritual care concerns: No Exam Const: General: no acute distress Nutritional Appearance: well nourished Limitations: altered mental status HENMT: Head: normal to inspection Eyes: Conjunctivae: conjunctivae normal Neck: Neck: no lymphadenopathy and no meningeal signs Chest: Chest palpation & inspection: normal inspection of the chest Resp: Effort & Inspection: normal respiratory effort Auscultation: clear to auscultation bilaterally Cardio: Rate: regular rate Rhythm: regular rhythm GI: GI Palp: Yes Soft to palpation Auscultation: normal bowel sounds Skin: General skin exam: normal color Wounds: no wounds Neuro: Other: opens eyes to voice but does not follow commands Extrem: General: normal to inspection and no clubbing, cyanosis or edema Course Vital Signs Vital signs: Vital Signs Temperature 98.2 F 06/19/22 20:15 Pulse Rate 50 L 06/19/22 20:15 Respiratory Rate 16 06/19/22 20:15 Blood Pressure 121/51 L 06/19/22 20:15 Pu
[2022-06-19 21:18] LABS: Appearance Urine Clear (Clear); Basophils Absolute Auto 0.1 K/mm3 (0.0-0.1); Basophils Percent Auto 0.9 % (0.2-1.2); Bilirubin Urine Negative (Negative); Blood Urine Negative (Negative); Color Urine Yellow (Yellow); Eosinophils Absolute Auto 0.3 K/mm3 (0-0.3); Glucose Urine UA Negative (Negative); Hematocrit 38.1 % (37.0-47.0); Hemoglobin 12.3 g/dL (12.0-15.0); Immature Granulocyte Absolute 0.02 K/mm3 (0.00-0.031); Immature Granulocyte Percent A 0.4 % (0-0.5); Ketones Urine Negative (Negative); Leukocyte Esterase Ur Negative LEU/UL (Negative); Lymphocytes Absolute Auto 1.32 K/mm3 (0.9-3.2); Lymphocytes Percent Auto 24.3 % (18.3-44.2); Mean Corpuscular HGB Conc 32.3 g/dl (32-36); Mean Corpuscular Hemoglobin 28.3 pg (26-34); Mean Corpuscular Volume 87.6 fl (80-100); Mean Platelet Volume 9.1 fl (7.4-10.4); Monocytes Absolute Auto 0.6 K/mm3 (0.1-0.6); Monocytes Percent Auto 11.6 % (2.6-8.5); Neutrophils Absolute Auto 3.2 K/mm3 (1.3-6.7); Neutrophils Percent Auto 57.8 % (45.5-73.1); Nitrate Urine Negative (Negative); Platelet Count Result 187 k/mm3 (150-375); Protein Urine Negative (Negative); Red Blood Count 4.35 M/mm3 (4.2-5.4); Red Cell Distribution Width 14.1 % (11.5-14.5); Urobilinogen Urine 0.2 mg/dL (<2.0); White Blood Count 5.4 K/mm3 (4.5-10.0); pH Urine 5.5 (5.0-9.0)
[2022-06-19 21:24] LABS: Add Urine Microscopic? NO
--- NOTE | 2022-06-19 21:25 | PC.NURSE ---
Pt brought in by her daughters who report new onset incontinence and worsening confusion. The last time this happened pt had UTI. Pt does not answer any questions appropriately, but follows commands. They are also concerned for dehydration.
[2022-06-19 21:34] LABS: Lactic Acid Reflex 1.3 mmol/L (0.7-2.0)
[2022-06-19 21:35] LABS: Alanine Aminotransferase 15 U/L (6-35); Alkaline Phosphatase 81 U/L (38-126); Anion Gap 7 mmol/L (8-16); Aspartate Amino Transferase 29 U/L (14-36); Bilirubin,Total 0.5 mg/dL (0.2-1.3); Blood Urea Nitrogen 11 mg/dL (7-17); Calcium 8.6 mg/dL (8.4-10.2); Carbon Dioxide 26 mmol/L (22-30); Chloride 100 mmol/L (98-107); Estimated CRCL calculation 37 ml/min; Estimated Glomerular Filt Rate 60; Glucose 95 mg/dL (65-110); Potassium 3.8 mmol/L (3.4-5.0); Sodium 133 mmol/L (137-145)
== END 2022-06-19 22:20 | disposition home or self-care (01) ==
PROVIDERS: Emergency Provider Emergency Medicine; PCP Internal Medicine
DX: R41.0 Disorientation, unspecified (principal); I69.920 Aphasia following unspecified cerebrovascular disease; I48.0 Paroxysmal atrial fibrillation; I25.10 Atherosclerotic heart disease of native coronary artery without angina pectoris; E78.5 Hyperlipidemia, unspecified; I10 Essential (primary) hypertension; K21.9 Gastro-esophageal reflux disease without esophagitis; Z87.891 Personal history of nicotine dependence
CPT/HCPCS: 36415; 51701; 70450; 71045; 80053; 81003; 83605; 85025; 99284

== ENCOUNTER 2022-11-04 14:42 | Emergency (ER) | payer MEDICARE, BC, SELFPAY ==
[2022-11-04] VITALS (17 sets, daily range): BP systolic 117–163; BP diastolic 54–110; PULSE 51–64; RESP 10–20; TEMP 36.7; O2SAT 99–100
--- NOTE | ~2022-11-04 | CT_ITS ---
EXAMINATION: CT brain wo con DATE: 11/04/2022 16:39 INDICATION: fall after syncope . TECHNIQUE: Computed tomography (CT) of the head was performed without intravenous contrast. The mA wa s adjusted according to patient size. Iterative reconstruction technique was employed. The dose-lengt h product was 605.33 mGy-cm. COMPARISON: 06/19/2022. FINDINGS: No acute intracranial hemorrhage or extra-axial fluid collection. No hydrocephalus, mass, or herniation. No acute ischemic infarct. Unremarkable dural venous sinus attenuation. No acute osseous abnormality. Left craniotomy. The aerated spaces are clear. Moderate atrophy and chronic white matter change. Atherosclerotic intracranial calcification. Bilater al lens replacements. Chronic left temporal lobe encephalomalacia. Chronic stable extra axial fluid c ollection deep to the craniotomy defect. IMPRESSION: No acute intracranial process. Reviewed, dictated and finalized at location K.
--- NOTE | ~2022-11-04 | CT_ITS ---
EXAMINATION: CT cervical spine wo con DATE: 11/04/2022 16:39 INDICATION: fall after syncope TECHNIQUE: Computed tomography (CT) of the cervical spine was performed without intravenous contrast. Automated exposure control and iterative reconstruction technique were employed. The dose-length pro duct was 169.41 mGy-cm. COMPARISON: None. FINDINGS: Vertebral Body Alignment: Intact. Craniocervical and atlantoaxial alignment: Moderate degenerative change. Alignment intact. Osseous structures/fracture: No evidence of a lytic or blastic process in the visualized spine. No e vidence of acute fracture. Cervical soft tissues: The paraspinal soft tissues planes are maintained. Aortic atherosclerotic calc ification and ectasia. Multiple bilateral thyroid nodules, the largest measuring up to 2.2 cm. Degenerative changes: Degenerative changes, without severe central canal narrowing. Severe left-sided neural foraminal narrowing on the left at C5-6. IMPRESSION: No acute fracture or traumatic malalignment in the cervical spine. Multiple bilateral thyroid nodules , the largest measuring up to 2.2 cm, recommend nonemergent outpatient thyroid ultrasound for further characterization. Reviewed, dictated and finalized at location K. IMPRESSION: No acute fracture or traumatic malalignment in the cervical spine. Multiple victor hugo ateral thyroid nodules, the largest measuring up to 2.2 cm, recommend nonemerge nt outpatient thyroid ultrasound for further characterization.
--- NOTE | ~2022-11-04 | XR_ITS ---
EXAMINATION: XR chest 1V portable DATE: 11/04/2022 15:58 INDICATION: Syncope TECHNIQUE: frontal view of the chest was obtained. COMPARISON: Chest radiograph dated 06/19/2022 FINDINGS: The lungs remain clear with no focal airspace opacities, pulmonary edema, pleural effusion or pneumot horax. Heart size is normal. Cholecystectomy clips in right upper quadrant. IMPRESSION: 1. No acute cardiopulmonary disease. Reviewed, dictated and finalized at location A.
--- NOTE | 2022-11-04 14:52 | ECG_ITS ---
Measurements Intervals [place] Rate: 53 P: 61 WV: 235 QRS: -30 QRSD: 95 T: 40 QT: 449 QTc: 424 Interpretive Statements SINUS BRADYCARDIA WITH FIRST DEGREE AV BLOCK BORDERLINE LEFT AXIS DEVIATION [QRS AXIS < -20] LOW QRS VOLTAGE IN PRECORDIAL LEADS [QRS DEFLECTION < 1.0 mV IN CHEST LEADS] COMPARED TO ECG 05/18/2022 10:10:00 SINUS BRADYCARDIA NOW PRESENT FIRST DEGREE AV BLOCK NOW PRESENT Electronically Signed On 11-04-2022 19:58:32 CDT by Ale Adkins M.D.
--- NOTE | 2022-11-04 15:09 | PC.NURSE ---
Pt placed on bed alarm, placed a yellow clasp on bracelet, side rails were put up, and call light is in reach. Pt was educated to use call button if she needed anything.
[2022-11-04 15:15] LABS: Basophils Percent Auto 0.6 % (0.2-1.2); Eosinophils Absolute Auto 0.2 K/mm3 (0-0.3); Eosinophils Percent Auto 3.6 % (0-4.4); Hematocrit 38.2 % (37.0-47.0); Hemoglobin 12.3 g/dL (12.0-15.0); Immature Granulocyte Absolute 0.01 K/mm3 (0.00-0.031); Immature Granulocyte Percent A 0.2 % (0-0.5); Lymphocytes Absolute Auto 1.35 K/mm3 (0.9-3.2); Lymphocytes Percent Auto 25.7 % (18.3-44.2); Mean Corpuscular HGB Conc 32.2 g/dl (32-36); Mean Corpuscular Hemoglobin 31.1 pg (26-34); Mean Corpuscular Volume 96.5 fl (80-100); Mean Platelet Volume 9.6 fl (7.4-10.4); Monocytes Absolute Auto 0.4 K/mm3 (0.1-0.6); Monocytes Percent Auto 7.6 % (2.6-8.5); Neutrophils Absolute Auto 3.3 K/mm3 (1.3-6.7); Neutrophils Percent Auto 62.3 % (45.5-73.1); Platelet Count Result 169 k/mm3 (150-375); Red Blood Count 3.96 M/mm3 (4.2-5.4); Red Cell Distribution Width 13.6 % (11.5-14.5); White Blood Count 5.3 K/mm3 (4.5-10.0)
[2022-11-04 15:29] LABS: Alanine Aminotransferase 17 U/L (6-35); Albumin Level 3.9 g/dL (3.5-5.1); Alkaline Phosphatase 83 U/L (38-126); Anion Gap 4 mmol/L (8-16); Aspartate Amino Transferase 28 U/L (14-36); Bilirubin,Total 0.4 mg/dL (0.2-1.3); Blood Urea Nitrogen 19 mg/dL (7-17); Calcium 8.3 mg/dL (8.4-10.2); Carbon Dioxide 27 mmol/L (22-30); Chloride 106 mmol/L (98-107); Estimated CRCL calculation 36 ml/min; Estimated Glomerular Filt Rate 53; Glucose 108 mg/dL (65-110); Potassium 4.1 mmol/L (3.4-5.0); Sodium 137 mmol/L (137-145)
[2022-11-04] MEDS: SODIUM CHLORIDE 0.9% IV 1,000 ML 999 ML IV CONT (15:44)
[2022-11-04 15:55] LABS: Lipase 360 U/L (23-300); Magnesium 2.2 mg/dL (1.6-2.3)
[2022-11-04 16:00] LABS: Appearance Urine Clear (Clear); Bilirubin Urine Negative (Negative); Blood Urine Negative (Negative); Color Urine Yellow (Yellow); Glucose Urine UA Negative (Negative); Ketones Urine Negative (Negative); Leukocyte Esterase Ur Negative LEU/UL (Negative); Nitrate Urine Negative (Negative); Protein Urine Negative (Negative); Specific Grav Ur 1.018 (1.001-1.035); Urobilinogen Urine 0.2 mg/dL (<2.0); pH Urine 5.5 (5.0-9.0)
[2022-11-04 16:04] LABS: Prothrombin Time 13.5 Seconds (11.1-14.7)
[2022-11-04 16:05] LABS: Partial Thromboplastin Time 31.9 SECONDS (22.3-36.8)
[2022-11-04 16:07] LABS: NT Pro B Type Natriuretic Pept 269 pg/mL (19.9-100); Troponin I < 0.012 ng/mL (0.000-0.034)
[2022-11-04 16:10] LABS: Add Urine Microscopic? NO
[2022-11-04 16:11] LABS: Lactic Acid Reflex 1.3 mmol/L (0.7-2.0)
--- NOTE | 2022-11-04 16:24 | ED.SYNCOPE ---
HPI - Syncope General Chief Complaint: Syncope Stated Complaint: syncopal History of Present Illness HPI narrative: Patient is an 82-year-old female with a history of hypertension, CHF, hyperlipidemia presenting with a syncopal episode. Patient is a [facility]. She reportedly stood up and then looked pale and diaphoretic before syncopizing. Patient states that she has been feeling a bit lightheaded lately. She denies any pain. No chest pain or abdominal pain. No shortness of breath. No numbness or weakness. Currently, she states that she feels well. Denies recent nausea or vomiting, dysuria. States she did have an episode of diarrhea earlier today. Related Data Home Medications Medication Instructions Recorded Confirmed Saccharomyces boulardii 250 mg 250 mg PO BID 05/18/22 05/18/22 capsule (Florastor) acetaminophen 650 mg tablet 650 mg PO Q6H PRN Pain (Scale 05/18/22 05/18/22 Score 1-3) famotidine 20 mg tablet 20 mg PO BID 05/18/22 05/18/22 ferrous sulfate 324 mg (65 mg 324 mg PO DAILY 05/18/22 05/18/22 iron) tablet,delayed release levetiracetam 500 mg tablet 500 mg PO BID 05/18/22 05/18/22 (Keppra) metoprolol tartrate 25 mg tablet 6.25 mg PO BID 05/18/22 05/18/22 nitroglycerin 0.4 mg sublingual 0.4 mg sublingual Q5M PRN Chest 05/18/22 05/18/22 tablet Pain trazodone 50 mg tablet 50 mg PO HS 05/18/22 05/18/22 Allergies Allergy/AdvReac Type Severity Reaction Status Date / Time erythromycin base Allergy Unknown Verified 04/14/22 08:09 Penicillins Allergy Unknown Verified 04/14/22 08:09 Sulfa (Sulfonamide Allergy Unknown Verified 04/14/22 08:08 Antibiotics) sulfanilamide Allergy Unknown Verified 04/14/22 08:08 Review of Systems Review of Systems: All systems reviewed & are unremarkable except as noted in HPI and below PMFSH Past Medical History Medical History Atrial fibrillation Coronary artery disease Dyslipidemia Essential (primary) hypertension GERD (gastroesophageal reflux disease) 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 Code status: Full code. Social determinants of health: New deficits (expressive aphasia, memory loss). Smoking status: Former smoker Additional smoking assessment comments: Patient family states she quit in her 20s Alcohol intake: never Substance use: never Substance use type: does not use Additional living arrangements comments: Prior to recent hospitalization the patient was living in her own home in [place]. Additional occupation/education comments: Retired. Spiritual care concerns: No Exam Narrative: GENERAL: Well-appearing elderly female sitting up in bed in no acute distress HEAD: Normocephalic, atraumatic. EYES: PERRLA and EOMI. ENT: Nares clear, no rhinorrhea or epistaxis. Mucous membranes moist. NECK: Supple. CHEST: Clear to auscultation. No respiratory distress. HEART: Bradycardic, regular rhythm; peripheral pulses 2+ ABDOMEN: Soft, nontender, nondistended EXTREMITIES: Normal range of motion. No edema. SKIN: Warm, dry, no rash. NEURO: No focal deficits. Alert and oriented x3. PSYCH: Normal mood and affect. Course Vital Signs Vital signs: Vital Signs Temperature 98.1 F 11/04/22 14:42 Pulse Rate 55 L 11/04/22 14:42 Respiratory Rate 20 11/04/22 14:42 Blood Pressure 159/54 H 11/04/22 14:42 Pulse Oximetry 99 11/04/22 14:42 Oxygen Delivery Room Air 11/04/22 14:42
[2022-11-04 18:59] LABS: Troponin I < 0.012 ng/mL (0.000-0.034)
== END 2022-11-04 19:59 ==
PROVIDERS: Emergency Provider Emergency Medicine; PCP Internal Medicine
DX: R42 Dizziness and giddiness (principal); E86.0 Dehydration; I48.0 Paroxysmal atrial fibrillation; I11.0 Hypertensive heart disease with heart failure; I50.9 Heart failure, unspecified; I25.10 Atherosclerotic heart disease of native coronary artery without angina pectoris; E78.5 Hyperlipidemia, unspecified; K21.9 Gastro-esophageal reflux disease without esophagitis; Z87.891 Personal history of nicotine dependence; E04.1 Nontoxic single thyroid nodule; R00.1 Bradycardia, unspecified; I44.0 Atrioventricular block, first degree
CPT/HCPCS: 36415; 70450; 71045; 72125; 80053; 81003; 83605; 83690; 83735; 83880; 84484; 85025; 85610; 85730; 93005; 96360; 96361; 99284; J7030

== ENCOUNTER 2022-11-26 19:13 | Emergency (ER) | payer MEDICARE, BC, SELFPAY ==
--- NOTE | 2022-11-26 19:34 | ED.FEMALEGU ---
HPI - Female Genitourinary General Chief complaint: Urogenital-Female Stated complaint: UTI Time Seen by Provider: 11/26/22 19:34 Source: patient Mode of arrival: ambulatory Limitations: no limitations History of Present Illness HPI Narrative: Patient is 82-year-old female who presents with increased irritability and slight increased confusion. Also reports urinary frequency and incontinence. Son brought her in from [facility] unit and states they are concerned for UTI. Patient denies any fever, low back pain or burning with urination. MD elicited complaint: dysuria Related Data Home Medications Medication Instructions Recorded Confirmed Saccharomyces boulardii 250 mg 250 mg PO BID 05/18/22 11/26/22 capsule (Florastor) acetaminophen 650 mg tablet 650 mg PO Q6H PRN Pain (Scale 05/18/22 11/26/22 Score 1-3) famotidine 20 mg tablet 20 mg PO BID 05/18/22 11/26/22 ferrous sulfate 324 mg (65 mg 324 mg PO DAILY 05/18/22 11/26/22 iron) tablet,delayed release levetiracetam 500 mg tablet 500 mg PO BID 05/18/22 11/26/22 (Keppra) metoprolol tartrate 25 mg tablet 6.25 mg PO BID 05/18/22 11/26/22 nitroglycerin 0.4 mg sublingual 0.4 mg sublingual Q5M PRN Chest 05/18/22 11/26/22 tablet Pain trazodone 50 mg tablet 50 mg PO HS 05/18/22 11/26/22 Allergies Allergy/AdvReac Type Severity Reaction Status Date / Time erythromycin base Allergy Unknown Verified 11/26/22 19:42 Penicillins Allergy Unknown Verified 11/26/22 19:42 Sulfa (Sulfonamide Allergy Unknown Verified 11/26/22 19:42 Antibiotics) sulfanilamide Allergy Unknown Verified 11/26/22 19:42 Review of Systems Review of Systems: All systems reviewed & are unremarkable except as noted in HPI and below Constitutional: Constitutional: Denies chills, Denies fever(s), Denies headache(s), Denies malaise and Denies weakness Eyes: Eyes: Denies change in vision, Denies eye discharge and Denies irritation ENT: Denies otalgia, Denies headache(s), Denies nasal congestion, Denies nasal discharge, Denies sinus pain and Denies sore throat Cardiovascular: Cardiovascular: Denies chest pain, Denies edema, Denies palpitations and Denies dyspnea Respiratory: Respiratory: Denies cough and Denies dyspnea Gastrointestinal: Gastrointestinal: Denies abdominal pain, Denies diarrhea, Denies nausea and Denies vomiting Genitourinary: Genitourinary: Denies hematuria, Denies dysuria, Denies flank pain, Reports urinary incontinence and Reports urinary urgency Musculoskeletal: Musculoskeletal: Denies back pain and Denies numbness Integumentary/Breasts: Skin/Breast: Denies pruritus and Denies rash Neurologic: Denies headache(s), Denies numbness and Denies weakness Psychiatric: Psychiatric: Reports no additional psychiatric complaints Endocrine: Endocrine: Denies palpitations PMFSH Past Medical History Medical History Atrial fibrillation Coronary artery disease Dyslipidemia Essential (primary) hypertension GERD (gastroesophageal reflux disease) 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 Code status: Full code. Social determinants of health: New deficits (expressive aphasia, memory loss). Smoking status: Former smoker Additional smoking assessment comments: Patient family states she quit in her 20s Alcohol intake: never Substance use: never Substance use type: does not use Additional living arrangements comments: Prior to recent hospitaliza
[2022-11-26 19:37] VITALS: BP 147/64; PULSE 106; RESP 12; TEMP 36.5; O2SAT 100
== END 2022-11-26 19:55 | disposition home or self-care (01) ==
PROVIDERS: Emergency Provider Nurse Practitioner Family; PCP Internal Medicine
DX: R35.0 Frequency of micturition (principal); R32 Unspecified urinary incontinence; I25.10 Atherosclerotic heart disease of native coronary artery without angina pectoris; E78.5 Hyperlipidemia, unspecified; I10 Essential (primary) hypertension; K21.9 Gastro-esophageal reflux disease without esophagitis; I48.0 Paroxysmal atrial fibrillation; Z87.891 Personal history of nicotine dependence
CPT/HCPCS: 81003; 99212; G0463

== ENCOUNTER 2023-01-31 17:09 | Emergency (ER) | payer MEDICARE, BC, SELFPAY ==
--- NOTE | ~2023-01-31 | CT_ITS ---
EXAMINATION: CT cervical spine wo con DATE: 01/31/2023 17:51 INDICATION: Fall with indeterminate head injury TECHNIQUE: Computed tomography (CT) of the cervical spine was performed without intravenous contrast. Automated exposure control and iterative reconstruction technique were employed. The dose-length pro duct was 104.94 mGy-cm. COMPARISON: None FINDINGS: 1-2 mm anterolisthesis C7 on T1. Vertebral body heights are normal. No fractures. Severe disc height loss at C3-C4, C5-C6, C6-C7, T1-T2, T2-T3 and T3-T4. Moderate disc height loss at C4-C5 and C7-T1. Mi ld disc height loss at C2-C3. Multilevel bilateral moderate to severe cervical facet and uncovertebra l osteoarthritis. There is fusion across the bilateral C3-C4 facet and uncovertebral joints posterior endplate osteophytes contributing to mild central canal stenosis at C4-C5 through C7-T1. There is al so multilevel bilateral moderate and mild neural foraminal stenosis most prominent bilaterally at C4- C5 through C6-C7. Atherosclerotic calcification is at the bilateral carotid bulbs. Multinodular goite r. Visualized apices of the lungs are clear. IMPRESSION: 1. Severe cervical and upper thoracic spondylosis. No acute osseous abnormality. 2. Multinodular goiter. Could consider follow-up thyroid ultrasound for risk stratification as clinic ally indicated. Reviewed, dictated and finalized at location A. IMPRESSION: 1. Severe cervical and upper thoracic spondylosis. No acute osseous abnormality . 2. Multinodular goiter. Could consider follow-up thyroid ultrasound for risk st ratification as clinically indicated.
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
--- NOTE | ~2023-01-31 | CT_ITS ---
EXAMINATION: CT brain wo con DATE: 01/31/2023 17:51 INDICATION: Fall with indeterminate head injury. TECHNIQUE: Computed tomography (CT) of the head was performed without intravenous contrast. Sagittal and coronal reconstructions were performed. The mA was adjusted according to patient size. Iterative reconstruction technique was employed. The dose-length product was 605.33 mGy-cm. COMPARISON: head CT dated 11/04/2022 FINDINGS: Chronic left-sided craniotomy with plate and screw fixations. No acute fracture. Unchanged small extr a-axial fluid collection deep to the craniotomy measuring up to 4 mm maximal thickness. Chronic encep halomalacia in the anterior left temporal lobe with ex vacuo dilation of the temporal horn of the lef t lateral ventricle. No acute intracranial hemorrhage, acute infarction or intracranial mass lesion. There is moderate scattered white matter hypoattenuation consistent with chronic small vessel ischemi c disease. Changes of bilateral intraocular lens replacement. Mild mucosal thickening the bilateral e thmoid sinuses. The mastoid air cells and middle ear cavities are clear. Intracranial calcified cereb ral atherosclerosis is noted. IMPRESSION: 1. No acute fracture or acute intracranial process. 2. Chronic encephalomalacia in the left temporal lobe. 3. Stable thin fluid collection deep to a left-sided craniotomy. 4. Stable scattered nonspecific cerebral white matter hypoattenuation consistent with chronic small v essel ischemic disease. Reviewed, dictated and finalized at location A. IMPRESSION: 1. No acute fracture or acute intracranial process. 2. Chronic encephalomalacia in the left temporal lobe. 3. Stable thin fluid collection deep to a left-sided craniotomy. 4. Stable scattered nonspecific cerebral white matter hypoattenuation consisten t with chronic small vessel ischemic disease.
[2023-01-31 17:13] VITALS: BP 133/52; PULSE 109; RESP 17; TEMP 36.6; O2SAT 95
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
[2023-01-31] MEDS: traMADol HCL (*CRX) 25 MG TABLET PO (17:37)
== END 2023-01-31 19:49 ==
PROVIDERS: Emergency Provider Physician Assistant; PCP Physician Assistant
DX: S42.215A Unspecified nondisplaced fracture of surgical neck of left humerus, initial encounter for closed fracture (principal); W03.XXXA Other fall on same level due to collision with another person, initial encounter; F03.90 Unspecified dementia, unspecified severity, without behavioral disturbance, psychotic disturbance, mood disturbance, and anxiety; I48.0 Paroxysmal atrial fibrillation; G93.89 Other specified disorders of brain; I25.10 Atherosclerotic heart disease of native coronary artery without angina pectoris; I10 Essential (primary) hypertension; E78.5 Hyperlipidemia, unspecified; K21.9 Gastro-esophageal reflux disease without esophagitis; Z79.82 Long term (current) use of aspirin
CPT/HCPCS: 70450; 72125; 73030; 99284; A4565; A9270